=== PATIENT | male | born 1990 | race Caucasian/White ===

== ENCOUNTER 2017-04-16 12:35 | Emergency (ER) | payer BC ==
[2017-04-16 13:18] VITALS: RESP 16
[2017-04-16] MEDS ORDERED: ONDANSETRON DISINTEGRATING 4 MG TAB PO ONE (13:19)
[2017-04-16] MEDS ORDERED: ONDANSETRON DISINTEGRATING 4 MG TAB ONE (13:21)
[2017-04-16] MEDS ORDERED: NS 500 ML IV ONE (14:00)
--- NOTE | 2017-04-16 14:09 | EDPHY ---
H & P Time Seen by Provider: 04/16/17 14:07 HPI/ROS: Chief complaint. Vomiting and diarrhea HPI. 27-year-old male with vomiting and diarrhea that started early this morning. He was well last night. He and his had the same thing for dinner however he added fish saw stay his meal. The said multiple episodes of vomiting and diarrhea and unable keep fluids down. He took a Imodium this morning but threw it back up. No blood in emesis. Crampy and achy in the abdomen. No abdominal history. No other recent travel. ROS Constitutional. no fever/chills, no weakness Eyes. no problems with vision ENT. no sore throat, no nasal drainage Cardiovascular. no chest pain Respiratory. no shortness of breath, no cough Abdominal. Crampy abdominal pain with vomiting and diarrhea . no problems urinating MS. no calf pain/swelling, no neck/back pain, no joint pain Skin. no rash Lymph. no swollen glands Neuro. 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 ENT, mucous membranes are dry Respiratory: There are no retractions, lungs are clear to auscultation. Cardiovascular: Regular rate and rhythm. Gastrointestinal: Abdomen is soft diffusely tender. No specific tenderness at McBurney's point. Normal bowel sounds. No masses. Neurological: Awake and alert, sensory and motor exams grossly normal. Skin: Warm and dry, no rashes. Musculoskeletal: Neck is supple nontender. Extremities symmetrical, full range of motion. Psychiatric: Patient is oriented X 3, there is no agitation. Constitutional: Initial Vital Signs Temperature (C) 37.6 C 04/16/17 13:16 Heart Rate 116 H 04/16/17 13:16 Respiratory Rate 16 04/16/17 13:16 Blood Pressure 161/99 H 04/16/17 13:16 O2 Sat (%) 97 04/16/17 13:16 O2 Delivery Mode Room Air Allergies/Adverse Reactions: No Known Allergies Allergy (Unverified 04/16/17 13:16) Home Medications: Medication Instructions Recorded Ondansetron Odt [Zofran Odt] 4 mg PO Q4PRN PRN #7 tab 04/16/17 Medical Decision Making Procedures: IV normal saline. Initial target 2 L. Zofran for nausea ED Course/Re-evaluation: Recheck 3:15 p.m.--feeling better. Just finishing L 2. No urge to urinate. L 3. Will be given. Taking oral ice chips without vomiting or diarrhea Re-evaluation at 4:45 p.m.. Patient has been taking oral fluids. No nausea vomiting or diarrhea. He feels well to go . He is up to urinate. Patient and I discussed laboratory evaluation, treatment plan including criteria for return importance of follow-up and further evaluation. He expresses understanding and agreement Differential Diagnosis: This is likely gastroenteritis. I considered other causes of vomiting and diarrhea illness including appendicitis and diverticulitis. Significant dehydration requiring 3 L of fluid for rehydration before urination - Data Points Laboratory Results: Laboratory Results 04/16/17 14:10 04/16/17 14:10 Sodium 143 mEq/L mEq/L (134-144) Potassium 4.6 mEq/L mEq/L (3.5-5.2) Chloride 104 mEq/L mEq/L (97-110) Carbon Dioxide 21 mEq/l L mEq/l (22-31) Anion Gap 18 mEq/L H mEq/L (8-16) BUN 28 mg/dL H mg/dL (7-23) Creatinine 1.0 mg/dL mg/dL (0.7-1.3) Estimated GFR > 60 Glucose 124 mg/dL H mg/dL (70-100) Calcium 10.1 mg/dL mg/dL (8.5-10.4) Lipase 80 IU/L IU/L (23-300) Medications Given: Discontinued Medications Sodium Chloride (Ns) 500 mls @ 1,000 mls/hr IV ONCE ONE PRN Reason: Protocol Stop: 04/16/17 14:29 Last Admin: 04/16/17 14:09 Dose: 500 mls Sodium Chloride (Ns) 1,000 mls @ 0 mls/hr IV EDNOW ONE; Wide Open PRN Reason: Protocol Stop: 04/16/17 14:22 Last Admin: 04/16/17 14:52 Dose: 1,000 mls Sodium Chloride (Ns) 1,000 mls @ 0 mls/hr IV ONCE ONE; Wide Open PRN Reason: Protocol Stop: 04/16/17 14:25 Last Admin: 04/16/17 14:20 Dose: 1,000 mls Sodium Chloride (Ns) 1,000 mls @ 0 mls/hr IV ONCE ONE; Wide Open PRN Reason: Protocol Stop: 04/16/17 15:19 Last Admin: 04/16/17 15:41 Dose: 1,000 mls Ondansetron HCl (Zofran Odt) 4 mg PO EDNOW ONE Stop: 04/16/17 13:20 Last Admin: 04/16/17 13:22 Dose: 4 mg Departure - Departure Disposition: Home, Routine, Self-Care Clinical Impression: Gastroenteritis, Dehydration Condition: Good Instructions: Gastroenteritis (ED), Loperamide (By mouth) Additional Instructions: Frequent, small sips fluids. Gradual diet advancement. Zofran as needed for nausea. Imodium (loperamide) can be used for diarrhea if necessary. Return for worsening symptoms. Recheck in 1-2 days if not improved Referrals: NONE *PRIMARY CARE P,. [Primary Care Provider] - As per Instructions Prescriptions: Ondansetron Odt [Zofran Odt] 4 mg PO Q4PRN PRN #7 tab PRN Reason: Nausea/Vomiting, Use 1st
[2017-04-16] MEDS ORDERED: NS 1,000 ML IV ONE ×3 (14:21→15:18)
[2017-04-16 14:39] LABS: ANION GAP 18 mEq/L (8-16); CALCIUM 10.1 mg/dL (8.5-10.4); CARBON DIOXIDE 21 mEq/l (22-31); CHLORIDE 104 mEq/L (97-110); GLOMERULAR FILTRATION RATE > 60; GLUCOSE 124 mg/dL (70-100); POTASSIUM 4.6 mEq/L (3.5-5.2); SODIUM 143 mEq/L (134-144)
[2017-04-16 16:07] VITALS: O2SAT 96
[2017-04-16 16:59] VITALS: BP 95/49; PULSE 95; TEMP 99.3
== END 2017-04-16 16:59 | disposition home or self-care (01) ==
DX: K52.9 Noninfective gastroenteritis and colitis, unspecified (principal); E86.9 Volume depletion, unspecified; E86.0 Dehydration